=== PATIENT | female | born 1980 | race Caucasian/White ===

== ENCOUNTER 2016-08-17 15:54 | Emergency (ER) | payer OTHER ==
[~2016-08-17] VITALS: Ht 157.5 cm; Wt 58.0 kg
[2016-08-17] MEDS ORDERED: LIDOCAINE HCL BUFFERED 1% 20 ML VIAL INJ ONE (22:00)
[2016-08-17 23:21] VITALS: BP 122/65
== END 2016-08-17 23:24 | disposition home or self-care (01) ==
LOC: EMS 15:57
DX: S06.0X9A Concussion with loss of consciousness of unspecified duration, initial encounter (principal); S02.2XXA Fracture of nasal bones, initial encounter for closed fracture; S01.411A Laceration without foreign body of right cheek and temporomandibular area, initial encounter; F17.210 Nicotine dependence, cigarettes, uncomplicated; V49.9XXA Car occupant (driver) (passenger) injured in unspecified traffic accident, initial encounter; Y93.89 Activity, other specified; Y92.89 Other specified places as the place of occurrence of the external cause; Y99.8 Other external cause status
CPT/HCPCS: 12011; 70450; 70486; 72040; 81025; 99284; J3490